=== PATIENT | male | born 1950 | race Caucasian/White ===

== ENCOUNTER 2016-07-22 05:47 | Day surgery (SDC) | payer MEDICARE, OTHER ==
[~2016-07-22] VITALS: Ht 170.2 cm; Wt 76.1 kg
[2016-07-22] VITALS (9 sets, daily range): BP systolic 107–130; BP diastolic 72–86; PULSE 83–100; RESP 10–18; O2SAT 93–98
[~2016-07-22 05:47] MED LIST: ALBU8.5H2 IH; ASCO500C6 PO; ASPI325T32 PO; ATOR80TA77 PO; CHOL100045 PO; CITA10TA9 PO; ECON15CR10 TOP; FLUT1DIS5 IH; LISI10TA PO; LORA0.5T PO; PANT40TA2 PO; TIOT18CA3 IH; VITAMIN B12 PO
[2016-07-22] MEDS ORDERED: Propofol 10,000 mCg/mL 20 mL Inj ONE (05:48)
[2016-07-22] MEDS ORDERED: fentaNYL-PF 50 mCg/mL 2 mL Inj ONE (05:48)
[2016-07-22] MEDS ORDERED: Dexamethasone 4 mg/mL Inj ONE (05:48)
[2016-07-22] MEDS ORDERED: MetoCLOpramide 5 mg/mL 2 mL Inj ONE (05:48)
[2016-07-22] MEDS ORDERED: MeTOProlol 1 mg/mL 5 mL Inj ONE (05:48)
[2016-07-22] MEDS ORDERED: Ondansetron 2 mg/mL 2 mL Inj ONE (05:48)
[2016-07-22] MEDS: Lactated Ringer's 1,000 ML IV SCH ×3 (05:53→15:12)
[2016-07-22] MEDS ORDERED: CeFAZolin 2 Gm/50 mL D5W IV Premix IV ONE (06:00)
--- NOTE | 2016-07-22 07:18 | PCM.HPANE ---
Patient Data Surgeon Admitting Provider: Attending Provider:Edgar Cade DO Primary Care Physician:Lisa Other Provider:Kali Cartagena Anesthesia Reason for Visit Right Knee Arthritis Ht/WT & BMI Height (Feet): 5 Height (Inches): 7.00 Weight (Kilograms): 75.9 Body Mass Index 26.00 Allergies Coded Allergies: morphine (Verified Adverse Reaction, Severe, N/V, 09/07/14) Past Anesthesia History Anesthesia History: Denies:: Abnormal Airway, Anesthesia Reactions, Difficult Intubation, Fam Anesthesia Reaction, Fam Malignant Hypertherm, Malignant Hyperthermia Diabetes History Hx Diabetes?: No MRSA MRSA: No Medications Blood Thinner: Aspirin Hypertension Medication: Yes Home Meds Incl Beta Rosalio: No Reported Medications Econazole Nitrate 15 Gm Cream..g.1 Appl TOP BID #1 TUBE 09/14/15 Lisinopril 10 Mg Ynniwd69 Mg PO DAILY 30 Days Ref 0 09/14/15 Aspirin 325 Mg Wycdnu589 Mg PO DAILY #1 BOTTLE 09/14/15 Fluticasone/Salmeterol (Advair 500-50 Diskus)1 Each Disk.w.dev1 Puff IH BID #1 DISK Ref 0 09/14/15 Albuterol HFA (Proair HFA)8.5 Gm Hfa.aer.ad2 Puffs IH Q4 PRN For Shortness of Breath #1 INHALER 09/07/14 Tiotropium [place] (Spiriva)18 Mcg Cap.w.dev18 Mcg IH DAILY #1 PKG Ref 0 09/07/14 Ascorbic Acid (Vitamin C)500 Mg Capsule.er500 Mg PO BID 09/07/[address] (Protonix)40 Mg Tablet.dr40 Mg PO DAILY 30 Days Ref 0 09/07/14 Lorazepam 0.5 Mg Tablet0.5 Mg PO TID PRN For Anxiety Ref 0 09/07/14 Atorvastatin Calcium 80 Mg Yxzmkx03 Mg PO DAILY 30 Days Ref 0 09/07/14 [Vitamin B12] No Conflict Check1,000 Mcg PO BID 09/07/14 Cholecalciferol (Vitamin D3) (Vitamin D)1,000 Unit Capsule1,000 Unit PO BID #1 BOTTLE Ref 0 09/07/14 Citalopram 10 Mg Frjdmn66 Mg PO DAILY 30 Days Ref 0 09/07/14 Discontinued Reported Medications Fluticasone/Salmeterol (Advair 250-50 Diskus)60 Puff/Inh Disk1 Puff IH BID #1 DISK Ref 0 09/07/14 History History of ENT Problems?: Yes HEENT History: Denies:: Abnormal Airway Cataracts Difficult Intubation Dysphagia Hearing Problem Sinus Problem Hx of Heart Problems?: Yes Cardiovascular History: Positive for:: Cardiac Surgery (heart cath 03/08, ) Hypertension Irregular Heartbeat (HX OF PVC'S W/ EXERCISE) Rheumatic Fever (CHILDHOOD) Denies:: AICD Atrial Fibrillation Chest Pain Heart Murmur Pacemaker Valvular Heart Disease (echo 2011- stress test 2015) Other Cardiac History: documented hx of pericarditis, pericardial tamponade 2002 Hx of Respiratory Problem?: Yes Respiratory History: Positive for:: Asthma (hx asthmatic bronchitis) Pulmonary Embolism Use of Inhalers / NEBS Denies:: COPD Cough Hemoptysis Oxygen Administration Pneumonia Tuberculosis Use of C-PAP Machine Hx Neurologic Problems?: No Neurological History: Denies:: Alzheimer's Disease CVA Dementia Dizziness Headaches Parkinson's Disease Seizures Hx of GI Problems?: Yes Gastrointestinal History: Positive for:: Gastroesphageal Reflux Heartburn Denies:: Cirrhosis Diverticulitis Hiatal Hernia Rectal Bleeding Other GI Pertinent History: hx umbilical hernia repair, inguinal hernia repair Hx of Problems?: Yes Genitourinary History: Denies:: Kidney Stones Other Pertinent History: past hx bladder tumor Male Hx: Positive for:: Scrotal Mass (HX SPERMATOCELE) Denies:: Prostate Problems Testicular Surgery Skin History: Denies:: History Skin Disorders? Pressure Ulcers Hx Musculoskeletal Problems?: Yes Musculoskeletal History: Positive for:: Joint Replacement (rt total shoulder) Musculoskeletal Trauma (right knee current admission problem) Osteoarthritis Denies:: Back Injury Fibromyalgia Hx of Psycho/Social Problems?: Yes Psycho Social History: Positive for:: Hx Depression Hx Surgeries?: Yes (hernia x2,tumor on the gallbladder bryan cath shoulder) Hx Any Other Health Problems?: Yes Other History: Positive for:: Cancer (Bladder tumor, non-Hodgkin's lymphoma) Hospitalization (CARDIAC) Denies:: Endocrine Disease Thyroid Disease History Blood Transfusions: Denies:: Blood Transfuse Reaction Blood Transfusions Hx Diabetes: No Hx Alcohol Use: YesHx Substance Use: No Smoking Status: Never Smoker Have You Smoked inLast 12 mo: No Stop/Bang Treated for Sleep Apnea?: No Do You Have a CPAP Machine?: No S-Snoring: Do You Snore Loudly: Yes T-Tired: feel tired, fatigued: No O-Obsered: Observed not breath: No P-Blood Pressure: treated: Yes B- Body Mass Index > 35 kg/m2: No A- Age over 50: Yes N- Neck Large Circumference: No G- Gender Male: Yes JEFF Total Score: 4 JEFF Risk Assessment: Low Risk, <3 Yes Risk Assessment Category Category 1A: Patient has history of documented sleep apnea, and HAS NOT received any narcotic, sedative or anesthesia administration during this stay. Category 1B: Patient has history of documented sleep apnea, and HAS received any narcotic , sedative or anesthesia administration during this stay Category 2: Patient has SUSPECTED Obstructive Sleep Apnea, and HAS received any narcotic , sedative or anesthesia administration during this stay. Category 3: Patient has SUSPECTED Obstructive Sleep Apnea and HAS NOT received narcotic, sedative or anesthesia administration during this stay. Category 4: Outpatient in Procedural Areas with known sleep apnea or who screen positive for High Risk via the STOP/BANG questionnaire. Exam Exam Vital Signs Vital Signs Date Time Temp Pulse Resp B/P Pulse Ox O2 Delivery O2 Flow Rate FiO2 07/22/16 06:20 35.5 100 18 128/74 93 Room Air General Appearance: Oriented X3 HEENT/AIRWAY: MP 2 Lungs: Normal Air Movement Heart: Regular Rate/Rhythm Meds/Labs/Diagnostics Admission Meds Current Medications Lactated Ringer's 1,000 ml @ 120 mls/hr Q8H20M IV Last administered on 05:53; Start 07/22/16 at 05:00; Stop 07/22/16 at 13:19 Vancomycin HCl/ Dextrose/Water (Vancocin Inj/ D5W) 250 ml @ 166.667 mls/hr Q12 IV Last administered on 07/22/16 06:23; Start 07/21/16 at 20:30 Plan Impression Patient chart reviewed, patient interviewed and anesthestic plan with risks, benefits, and alternatives discussed, and informed consent obtained. NPO Status: 1030pm ASA Physical Status: ASA2 Mod Systemic Disease Anesthetic Plan: GA, Regional Block Bene/Risks/Altern/Consents: Yes HP Complete Prior to Induction: Yes Carlitos Curtis MD Jul 22, 2016 07:17
[2016-07-22] MEDS ORDERED: Ropivacaine-PF 0.5% 30 mL Inj ARTICULAR ONE (08:00)
[2016-07-22] MEDS ORDERED: Lactated Ringer's 500 ML IV PRN (08:06)
[2016-07-22] MEDS ORDERED: Lactated Ringer's 1,000 ML IV SCH (08:06)
[2016-07-22] MEDS ORDERED: Phenylephrine 10,000 mCg/mL Inj IVPUSH PRN (08:10)
[2016-07-22] MEDS ORDERED: Dexamethasone 4 mg/mL Inj IVPUSH PRN (08:10)
[2016-07-22] MEDS ORDERED: Ondansetron 2 mg/mL 2 mL Inj IVPUSH PRN (08:10)
[2016-07-22] MEDS ORDERED: fentaNYL-PF 50 mCg/mL 2 mL Inj IVPUSH PRN (08:10)
[2016-07-22] MEDS ORDERED: HYDROmorphone 1 mg/mL Inj IVPUSH PRN (08:10)
[2016-07-22] MEDS ORDERED: EPHEDrine Sulfate 50 mg/mL Inj IVPUSH PRN (08:10)
[2016-07-22] MEDS ORDERED: Labetalol 5 mg/mL 4 mL Inj IV PRN (08:10)
[2016-07-22] MEDS ORDERED: MetoCLOpramide 5 mg/mL 2 mL Inj IVPUSH PRN (08:10)
[2016-07-22] MEDS ORDERED: Polyethylene Glycol (PEG) 17 Gm Powder PO PRN (09:55)
[2016-07-22] MEDS ORDERED: diphenhydrAMINE 25 mg Capsule PO PRN (09:55)
[2016-07-22] MEDS ORDERED: Sodium Biphos-Phos 133 mL Enema RECTAL PRN (09:55)
[2016-07-22] MEDS ORDERED: Magnesium Hydroxide 10 mL Oral Concentration PO PRN (09:55)
[2016-07-22] MEDS ORDERED: fentaNYL-PF 50 mCg/mL 2 mL Inj IVPUSH ONE (10:20)
--- NOTE | 2016-07-22 10:30 | DRSVH ---
PROCEDURE: X-RAY RIGHT KNEE, ONE OR TWO VIEWS ([id number]) INDICATIONS: POST OPERATIVE TECHNIQUE: 2 view(s) of the knee acquired. COMPARISON: None. FINDINGS: Bones: Patient is status post knee joint medial unicondylar arthroplasty. Hardware components are i n expected positions. Visualized bony structures are intact. Soft tissues: Overlying postoperative changes are noted. IMPRESSION: Expected postsurgical change compatible with medial unicondylar right knee arthroplasty. Dictated by: Xiomy Crockett MD, PhD on 07/22/2016 at 10:28 Approved by: Xiomy Crockett MD, PhD on 07/22/2016 at 10:29
--- NOTE | 2016-07-22 10:49 | OP ---
[address] [address] OPERATIVE REPORT PATIENT: BENJAMIN JONES : 1950 MR#: [id number] ADMIT: 07/22/2016 JOB ID: [id number] DATE OF SURGERY: 07/22/2016 PREOPERATIVE DIAGNOSIS(ES): Right knee medial compartment degenerative arthritis. POSTOPERATIVE DIAGNOSIS(ES): Right knee medial compartment degenerative arthritis. PROCEDURE: Right unicompartmental knee arthroplasty. SURGEON: Edgar Cade DO. ASSISTING: Chaya Rivera PA-C. INDICATIONS: The patient is a 66-year-old male with right knee medial compartment DJD who had failed conservative measures and wished to proceed with a right unicompartmental knee arthroplasty. We discussed the risks, benefits, and possible complications of surgery. All questions were answered. He wished to proceed. A registered nurse surgical services was required for the successful completion of this procedure. PROCEDURE IN DETAIL: The patient was brought to the operating room. He was given a preoperative antibiotic and adductor canal block, general anesthetic. The right lower extremity was sterilely prepped and draped. A tourniquet was used for hemostasis. An incision was made over the anteromedial knee. Dissection was carefully carried through the subcutaneous tissue and the medial retinaculum was then incised. We gained access to the knee. A portion of the fat pad was removed, as was a small sliver of bone off of the medial patella. The knee was inspected. He was noted to have a central area of ulceration over the patella which was about a cm in size with some C3 chondromalacia but his trochlea appeared to have cartilage intact. We elected to proceed with the unicompartmental knee arthroplasty. He had marginal osteophytes of the medial aspect of the femur and tibia which were resected. The anterior boss of bone on the tibia was then removed and the external alignment belinda was placed on the tibia and femur. This was pinned into position, and the femoral cut was performed. The knee was then flexed, and the tibial cut was performed. The guide was then removed, and the sagittal cut was also performed. The meniscus was removed, and the femur was then sized. [place] to be a size D. The D femoral cutting block was pinned into position, and the femoral cuts were performed. The lugs were then drilled into the femur, followed by sizing the tibia which was felt to be a size 3. The tibial jig was impacted into position, and the tibial lugs were drilled. The bony surfaces were washed and dried, and trials were performed which showed excellent alignment and equal gaps medially and laterally with the 9 mm poly, D femur and 3 [employer] ZUK unicompartmental knee arthroplasty components. The knee was irrigated and then, the components were cemented into position beginning with the tibia, followed by the femur. I allowed the cement to polymerize in full extension. Then, all excess cement was removed. The extra bony debris was removed, and the 9 E-Poly implant was impacted into position. The knee was again irrigated and the tourniquet was let down. Electrocautery was used for hemostasis. The wound was then closed with #1 Surgilon and 0 Vicryl to close the capsule. The subcu was closed with 2-0 V-Loc, and the skin was closed with subcuticular 4-0 Monocryl. Naropin was added as an adjunct local anesthetic. Sterile dressings were applied. Patient tolerated the procedure well. Blood loss was 15 mL. POSTOPERATIVE PROTOCOL: Have the patient weight bear to tolerance, use crutches or walker or cane as needed, and will plan to use Percocet for postop pain and aspirin for DVT prophylaxis.
--- NOTE | 2016-07-22 10:51 | PCM.ANEP2 ---
Post Anesthesia Evaluation ASA/CMS Post Anesthesia VS in Patient's Normal Range?: Yes Resp Stable; Airway Patent?: Yes CV Function & Hydration Stable: Yes Mental Status Recovered?: Yes Pain control Satisfactory?: Yes N/V Control Satisfactory?: Yes Carlitos Curtis MD Jul 22, 2016 10:51
--- NOTE | 2016-07-22 10:51 | PCM.ANEP1 ---
Post Anesthesia Phase 1 PACU Phase 1 Assessment Vital Signs Vital Signs Date Time Temp Pulse Resp B/P Pulse Ox O2 Delivery O2 Flow Rate FiO2 07/22/16 10:20 84 12 130/82 97 Nasal Cannula 2 07/22/16 10:10 87 10 124/86 96 Nasal Cannula 2 07/22/16 10:00 86 10 118/74 95 Nasal Cannula 2 07/22/16 09:50 83 13 107/78 98 Simple Mask 10 07/22/16 09:42 36.6 84 12 123/79 98 Simple Mask 10 07/22/16 06:20 35.5 100 18 128/74 93 Room Air Anesthetic Administered: GA Level of Alertness: Awake, talking Pain: No Nausea or Vomiting: No Oxygen Delivery: Room Air Lungs: Normal Air Movement Carlitos Curtis MD Jul 22, 2016 10:51
[2016-07-22] MEDS: 0.9% Sodium Chloride 1,000 ML IV SCH ×2 (11:02→21:48)
[2016-07-22] MEDS ORDERED: Albuterol 2.5 mg/3 mL Inhalation Solution NEB PRN (11:15)
[2016-07-22] MEDS ORDERED: LORazepam 0.5 mg Tablet PO PRN (11:15)
--- NOTE | 2016-07-22 12:24 | NUR ---
Post Op Patient received to room 1003 s/p R uni knee. Patient with lamar wrap noted over extremity. Pt denies pain , some numbness remains to knee area related to block placed. Patient is able to wiggle feet and does have sensation to foot. Patient denies nausea, taking ice at this time. Pt oriented to room by charge nurse and academy director upon arrival. Pt able to void post surgery.
[2016-07-22] MEDS: oxyCODONE-Acetamin 5-325 mg Tablet PO PRN ×3 (14:32→23:49)
[2016-07-22] MEDS: Sodium Chloride LOK Flush 10 mL Syringe IV SCH (16:30)
[2016-07-22] MEDS ORDERED: ECONAZOLE 1% TOPICAL SCH (20:30)
[2016-07-22] MEDS: Fluticasone-Salmeterol 500-50 Inhaler INHALATION SCH (22:48)
[2016-07-22] MEDS: Senna-Docusate 8.6-50 mg Tablet PO SCH (22:49)
[2016-07-22] MEDS: Ascorbic Acid 500 mg Tablet PO SCH (22:49)
[2016-07-23 00:09] VITALS: BP 118/70; PULSE 95; RESP 16; O2SAT 96
[2016-07-23] MEDS: Sodium Chloride LOK Flush 10 mL Syringe IV SCH ×2 (00:30→09:51)
--- NOTE | 2016-07-23 04:20 | NUR ---
Pain Patient rating pain about a 4/10 at it's highest point. Taking Percocet 5/325 two tabs PO with effective results. Currently resting with eyes closed. Able to get up and ambulate with SBA using FWW this shift.
[2016-07-23 05:30] LABS: BASOPHILS % (AUTO) 0 % (0-3); EOSINOPHILS % (AUTO) 0 % (0-5); MONOCYTES % (AUTO) 12.2 % (4-12); Mean Corpuscular Hemoglobin 33.8 pg (27.0-35.0); Mean Corpuscular Volume 103.1 fL (81-100); NEUTROPHILS % (AUTO) 79.4 % (40-74); Platelet Count 139 bil/L (150-400)
[2016-07-23] MEDS: 0.9% Sodium Chloride 1,000 ML IV SCH (05:52)
[2016-07-23] MEDS: oxyCODONE-Acetamin 5-325 mg Tablet PO PRN ×2 (05:59→09:54)
[2016-07-23 06:14] VITALS: BP 138/79; PULSE 94; RESP 16; O2SAT 93
[2016-07-23] MEDS ORDERED: Pantoprazole 40 mg ER24 Tablet PO SCH (06:30)
--- NOTE | 2016-07-23 06:35 | PCM.PNORTH ---
Subjective Date of Service: Jul 23, 2016 Visit Information: Reason for Visit Right Knee Arthritis Surgery/Surgery Date RIGHT MEDIAL UNI KNEE 07/22/16 Post-Op Day # Date of Admission: Hospital Day # Subjective Patient awake and alert this morning and sitting up in bed. No complaints of pain at this time. Discussed discharge to home today and patient is in favor of this. Patient relates that he does have spouse at home to care for him and that he has a single level home with broad steps to get into the home. Patient is well-informed and alert and prepared for discharge today after another morning PT session. Postop General: No Complaints, No Shortness of Breath, No Chest Pain, Good Appetite Pain Management: PO Objective Exam Objective Orientation: Alert and oriented 3 and pleasant. Dressing: Interoperative dressing clean dry and intact. Dressing is changed to ABD and fishnet-type dressing this morning with Silverlon. Wound: Wound is in good condition and is clean dry and intact with no drainage, no erythema and no focal swelling Compartments: Thigh and calf are soft and nontender Mobility/sensation: Mobility and sensation are intact of the right lower extremity distally Abduction wedge: None VICTOR MANUEL hose: None Rojas: None Drain: None Gait: Gait 40 feet yesterday L1 2016 with physical therapy. Patient is cleared for discharge to home after morning PT session by physical therapy. Vital Signs and I/O Vital Sign - Last Date Time Temp Pulse Resp B/P Pulse Ox O2 Delivery O2 Flow Rate FiO2 07/23/16 00:09 36.8 95 16 118/70 96 Room Air 07/22/16 10:52 2.00 Intake and Output 07/22/16 07/22/16 07/23/16 Cumulative From/Thru 15:00 23:00 07:00 07/18/16 15:00 - 07/23/16 05:59 Intake Total 800 ml 400 ml 1924 ml 3374 ml Output Total 15 ml 470 ml 485 ml Balance 785 ml -70 ml 1924 ml 2889 ml Intake Oral 400 ml 400 ml IV Total 800 ml 1924 ml 2974 ml Output Urine Total 470 ml 470 ml Estimated Blood Loss 15 ml 15 ml # Bowel Movements 0 0 Lab & Micro Results Laboratory Tests Test 07/23/16 04:50 White Blood Count 4.8th/mm3 (3.8-10.1) Red Blood Count 3.55mil/mm3 (4.40-5.80) Hemoglobin 12.0g/dL (13.8-17.2) Hematocrit 36.6% (41.0-50.0) Mean Corpuscular Volume 103.1fL (81-100) Mean Corpuscular Hemoglobin 33.8pg (27.0-35.0) Mean Corpuscular Hemoglobin Concent 32.8% (32.0-37.0) Red Cell Distribution Width 12.8% (12.3-15.4) Platelet Count 139bil/L (150-400) Neutrophils (%) (Auto) 79.4% (40-74) Lymphocytes (%) (Auto) 8.2% (14-46) Monocytes (%) (Auto) 12.2% (4-12) Eosinophils (%) (Auto) 0% (0-5) Basophils (%) (Auto) 0% (0-3) Sodium Level 142mEq/L (134-144) Potassium Level 4.9mEq/L (3.5-5.2) Chloride Level 106mEq/L (97-108) Carbon Dioxide Level 28mmol/L (18-29) Blood Urea Nitrogen 12mg/dL (8-27) Creatinine 0.85mg/dL (0.76-1.27) Estimat Glomerular Filtration Rate 96mL/min (>59) Glucose Level 124mg/dL (60-99) Calcium Level 8.3mg/dL (8.5-10.1) Result Diagram: 07/23/1644907/23/16449 General Appearance: Alert, Oriented X3, Cooperative, No Acute Distress Extremities: No Compartment Syndrom Noted, Thigh & Calf Soft/Nontender Postop Sensory Motor: Distal Motor Intact, Movement in Toes, Distal Sensation Intact Activity: Activity per PT, Ambulate with PT (weightbearing as tolerated on the right lower extremity using from [place] Walker) Catheters: None Assessment & Plan Impression Patient is an otherwise healthy 66-year-old gentleman who is in good spirits and doing well as morning. Has no complaints of pain and he is prepared for discharge. Problems: Plan Postop day # 1 from right medial unicompartmental knee arthroplasty performed on 07/22/[address] Edgar Cade. Weight bearing status: Weightbearing as tolerated on the right lower extremity using front wheeled walker, crutches or single-point cane as needed. Mobility aid: 4 wheeled walker, bilateral axillary crutches, single-point cane Immobilization: None Precautions: Standard postop safety precautions regarding mobility Physical therapy: Continue formal physical therapy for mobility, gait and safety. Pain control: Continue by mouth pain control with Percocet 5 g DVT prophylaxis: Continue ASA 325 mg EC by mouth daily 6 weeks postop for DVT prophylaxis. Wound care: Keep wound and dressing clean dry and intact until seen in office in 2 weeks. Infectious DZ: None Rojas: None Dressing: Interoperative dressing was found to be clean dry and intact this morning and is changed to postop dressing with ABDs and a fishnet and Silverlon. Drain: None Abduction wedge: None VICTOR MANUEL hose: None. ABDs will be ordered this morning and should be fit prior to discharge. Nursing communication: Nursing please fit patient with bilateral thigh-high VICTOR MANUEL hose this morning which I will place order for. 2-week follow-up: Follow-up in 2 weeks that [facility] orthopedic clinic on prearranged appointment with mid-level provider for wound check and suture removal. 6-week follow-up: Follow-up in 6 weeks at [facility] orthopedic clinic with Dr. Edgar Cade with right 2 view knee x-rays on arrival. Discharge plan: Discharge to home today with family as caregivers on 2016 after a.m. PT session VTE Prophylaxis: SCDs, VICTOR MANUEL Hose, Other (ASA 325 mg EC by mouth daily 6 weeks postop for DVT prophylaxis) Jhonny Haskins PA-C Jul 23, 2016 06:35
--- NOTE | 2016-07-23 06:39 | PCM.DIOPOR ---
OP Ortho Discharge Instruction Dates of Hospitalization Date of Discharge: Jul 23, 2016 Providers Admitting Physician: Primary Care Physician: Lisa Attending Physician: Edgar Cade DO Diagnosis at Time of Discharge Post operative diagnosis Severe right knee osteoarthritis Diet Discharge Diet: No restrictions Activity Activity-General: Try not to overdue, Be up and about, Balance rest and activity, Ice incision 3-5 time/day for 20min, Activity as pain allows, Activity as energy allows Right Lower Extremity: Weight Bearing as tolerated Discharge Assist Device: Front Wheeled Walker, Crutches, Other (single-point cane) Dressing and Incisional Care Dressing Care: Keep dressing clean, dry & intact, Change soiled dressing Hygiene: May shower (patient may shower but dressing and wound should be kept clean and dry until seen in office in 2 weeks.), DO NOT soak incision under water, NO bathtub, hot tub or whirlpool Additional Instructions Discharge Instructions Postop day # 1 from right medial unicompartmental knee arthroplasty performed on 07/22/[address] Edgar Cade. Weight bearing status: Weightbearing as tolerated on the right lower extremity using front wheeled walker, crutches or single-point cane as needed. Mobility aid: 4 wheeled walker, bilateral axillary crutches, single-point cane Immobilization: None Precautions: Standard postop safety precautions regarding mobility Physical therapy: Continue formal physical therapy for mobility, gait and safety. Pain control: Continue by mouth pain control with Percocet 5 g DVT prophylaxis: Continue ASA 325 mg EC by mouth daily 6 weeks postop for DVT prophylaxis. Wound care: Keep wound and dressing clean dry and intact until seen in office in 2 weeks. Infectious DZ: None Rojas: None Dressing: Interoperative dressing was found to be clean dry and intact this morning and is changed to postop dressing with ABDs and a fishnet and Silverlon. Drain: None Abduction wedge: None VICTOR MANUEL hose: None. ABDs will be ordered this morning and should be fit prior to discharge. Nursing communication: Nursing please fit patient with bilateral thigh-high VICTOR MANUEL hose this morning which I will place order for. 2-week follow-up: Follow-up in 2 weeks that [facility] orthopedic clinic on prearranged appointment with mid-level provider for wound check and suture removal. 6-week follow-up: Follow-up in 6 weeks at [facility] orthopedic clinic with Dr. Edgar Cade with right 2 view knee x-rays on arrival. Discharge plan: Discharge to home today with family as caregivers on 2016 after a.m. PT session Follow Up Plan Follow Up Plan Follow-up in 2 weeks, 6 weeks and 12 weeks postoperatively. Follow up when necessary in the interim Follow-up Provider (F9): Edgar Cade DO Follow-up appointment: Weeks (follow up in 2 weeks at [facility] orthopedic clinic on prearranged appointment with mid-level provider for wound check and suture removal.) Call your provider for: Fever, Chills, Shortness of breath, Vomitting, Drainage at incision Jhonny Haskins PA-C Jul 23, 2016 06:39
[2016-07-23] MEDS ORDERED: ASPI325T32 PO (06:42)
[2016-07-23] MEDS ORDERED: OXYC1TAB24 PO (06:42)
--- NOTE | 2016-07-23 06:45 | PCM.DC.ORT ---
Discharge Summary Date of Service: Jul 23, 2016 Date of Hospital Admission: 07/22/2016 Date of Surgery: Jul 22, 2016 Date of Discharge: Jul 23, 2016 Reason for Hospitalization: Severe right knee osteoarthritis Procedures Performed: Right medial unicompartmental knee arthroplasty Hospital Course: Patient was admitted through the preoperative care unit on 07/22/2016 and upon processing was taken to the operating room where his procedure was performed without incident. Upon awakening patient was taken to the postoperative care unit and after recovery from anesthesia was transferred to the orthopedic care unit for an overnight stay where he participated well with formal physical therapy on his operative day and received recommendation for discharge to home with family as caregivers on 07/23/2016 after his morning PT session. Problems: (1) Arthritis of knee Status: Acute ICD Code: M19.90 Disposition: Discharge to home with family as caregivers Orthopedic Follow up Plan: In Two Weeks in my clinic (follow up in 2 weeks at [facility] orthopedic clinic on prearranged appointment with mid-level provider for wound check and suture removal.) Discharge Instructions: Postop day # 1 from right medial unicompartmental knee arthroplasty performed on 07/22/[address] Edgar Cade. Weight bearing status: Weightbearing as tolerated on the right lower extremity using front wheeled walker, crutches or single-point cane as needed. Mobility aid: 4 wheeled walker, bilateral axillary crutches, single-point cane Immobilization: None Precautions: Standard postop safety precautions regarding mobility Physical therapy: Continue formal physical therapy for mobility, gait and safety. Pain control: Continue by mouth pain control with Percocet 5 g DVT prophylaxis: Continue ASA 325 mg EC by mouth daily 6 weeks postop for DVT prophylaxis. Wound care: Keep wound and dressing clean dry and intact until seen in office in 2 weeks. Infectious DZ: None Rojas: None Dressing: Interoperative dressing was found to be clean dry and intact this morning and is changed to postop dressing with ABDs and a fishnet and Silverlon. Drain: None Abduction wedge: None VICTOR MANUEL hose: None. ABDs will be ordered this morning and should be fit prior to discharge. Nursing communication: Nursing please fit patient with bilateral thigh-high VICTOR MANUEL hose this morning which I will place order for. 2-week follow-up: Follow-up in 2 weeks that [facility] orthopedic clinic on prearranged appointment with mid-level provider for wound check and suture removal. 6-week follow-up: Follow-up in 6 weeks at [facility] orthopedic clinic with Dr. Edgar Cade with right 2 view knee x-rays on arrival. Discharge plan: Discharge to home today with family as caregivers on 2016 after a.m. PT session Management Plan: Patient will be seen at 2 weeks, 6 weeks and 12 weeks postoperatively. Patient will be seen when necessary in the interim. ([Vitamin B12]) 1,000 MCG PO BID Albuterol HFA (Proair HFA) 8.5 Gm Hfa.aer.ad 2 PUFFS IH Q4 PRN PRN For Shortness of Breath Ascorbic Acid (Vitamin C) 500 Mg Capsule.er 500 MG PO BID Aspirin (Aspirin) 325 Mg Tablet 325 MG PO DAILY Atorvastatin Calcium (Atorvastatin Calcium) 80 Mg Tablet 80 MG PO DAILY Cholecalciferol (Vitamin D3) (Vitamin D) 1,000 Unit Capsule 1,000 UNIT PO BID Citalopram (Citalopram) 10 Mg Tablet 20 MG PO DAILY Econazole Nitrate (Econazole Nitrate) 15 Gm Cream..g. 1 APPL TOP BID Fluticasone/Salmeterol (Advair 500-50 Diskus) 1 Each Disk.w.dev 1 PUFF IH BID Lisinopril (Lisinopril) 10 Mg Tablet 10 MG PO DAILY Lorazepam (Lorazepam) 0.5 Mg Tablet 0.5 MG PO TID PRN PRN For Anxiety Pantoprazole DR (Protonix) 40 Mg Tablet.dr 40 MG PO DAILY Tiotropium [place] (Spiriva) 18 Mcg Cap.w.dev 18 MCG IH DAILY oxyCODONE-Acetaminophen 5-325 mg (oxyCODONE-Acetaminophen 5-325 mg) 1 Each Tablet 1-2 TAB PO Q4-6H PRN PRN For Pain Jhonny Haskins PA-C Jul 23, 2016 06:45
[2016-07-23] MEDS ORDERED: Tiotropium 18mcg/Cap 5 Capsule Inhaler Kit INHALATION SCH (08:30)
[2016-07-23] MEDS: Fluticasone-Salmeterol 500-50 Inhaler INHALATION SCH (08:30)
--- NOTE | 2016-07-23 08:59 | NUR ---
Evaluation completed. Please go to "Notes" then click on "Assessments and Notes" (bottom left corner of screen). Then select appropriate discipline tab on top of screen.
--- NOTE | 2016-07-23 09:19 | NUR ---
Social Work Initial Assessment: SW met with patient at bedside today to discuss discharge plan. Patient is a 66 year old male admitted under [facility] for Right Knee arthritis. Patient resides in [place] with Tess, who to provide support and care at discharge. Patient payer as Medicare and [employer]. Patient has no [employer] disability nor [employer] benefits. Patient PCP as MD Bro Griffiths. Patient states PCP last seen 6 months ago. Patient states having no previous HHC, SNF or DME history. Patient pharmacy of choice as [facility]. Patient states having AD on file. SW reviewed OT notes which reflect recommendations for home. PT recommending outpt PT at discharge. SW to request script at discharge. No other anticipated discharge needs identified at this time. SW to follow. PLAN: Home with via POV. Outpatient therapy at discharge. No other anticipated discharge needs at this time. SW to follow. Daryl LEWIS Addendum: 07/23/16 at 0924 by MIKE CAMILO Amended: Links added.
[2016-07-23] MEDS: Senna-Docusate 8.6-50 mg Tablet PO SCH (09:53)
[2016-07-23] MEDS: Ascorbic Acid 500 mg Tablet PO SCH (09:53)
[2016-07-23 10:31] VITALS: BP 131/79; PULSE 86; RESP 17; O2SAT 93
--- NOTE | 2016-07-23 11:53 | NUR ---
Skin flushing Pt has been receiving 2 Percocet for pain. Pt remarked that he experiences profuse sweating and flushing of his face, neck, and head after taking this medication. I observed these same symptoms two hours after he had received Percocet. Pt denies itching. Paged ortho PA to ask if another pain medication should be prescribed in place of Percocet.
--- NOTE | 2016-07-23 12:20 | NUR ---
Discharge Pt discharged to home with spouse via private vehicle at 1220 hrs. VSS. PIV removed intact. Pain controlled with Percocet. Discharge and follow up instructions given to pt and he expressed understanding. All personal possessions sent with pt.
== END 2016-07-23 12:20 | disposition home or self-care (01) ==
LOC: SAS 05:47 → OSC 10:37 → SAS 07-23 12:20
PROVIDERS: ATTEND Orthopaedic Surgery
DX: M17.11 Unilateral primary osteoarthritis, right knee (principal); M94.261 Chondromalacia, right knee; I10 Essential (primary) hypertension; E78.5 Hyperlipidemia, unspecified; I25.119 Atherosclerotic heart disease of native coronary artery with unspecified angina pectoris; K21.9 Gastro-esophageal reflux disease without esophagitis; J45.909 Unspecified asthma, uncomplicated; J44.9 Chronic obstructive pulmonary disease, unspecified; F32.9 Major depressive disorder, single episode, unspecified; F41.9 Anxiety disorder, unspecified; Z85.72 Personal history of non-Hodgkin lymphomas; Z95.5 Presence of coronary angioplasty implant and graft; Z92.3 Personal history of irradiation; Z92.21 Personal history of antineoplastic chemotherapy; Z79.51 Long term (current) use of inhaled steroids; Z79.82 Long term (current) use of aspirin
CPT/HCPCS: 27446; 36415; 73560; 80048; 85025; 97116; 97161; 97166; C1713; C1776; J0690; J1100; J2405; J2765; J2795; J3370; J7030; J7120